=== PATIENT | male | born 1980 | race African-American/Black ===

== ENCOUNTER 2017-10-26 16:19 | Emergency (ER) | payer BC ==
[~2017-10-26] VITALS: Ht 175.3 cm; Wt 88.0 kg
--- NOTE | 2017-10-26 16:39 | NUR ---
PT PRESENTED TO THE ER WITH A C/O RT SIDED NECK AND LOWER BACK PAIN THAT RADIATES DOWN THE RLE.
--- NOTE | 2017-10-26 16:43 | NUR ---
PT REC'D ICE PACKS.
[2017-10-26 17:26] VITALS: BP 123/72
== END 2017-10-26 17:26 | disposition home or self-care (01) ==
LOC: ER 16:21
DX: S39.012A Strain of muscle, fascia and tendon of lower back, initial encounter (principal); Z60.2 Problems related to living alone; V43.52XA Car driver injured in collision with other type car in traffic accident, initial encounter; Y93.89 Activity, other specified; Y92.413 State road as the place of occurrence of the external cause; Y99.8 Other external cause status
CPT/HCPCS: 99283; A4606; Z7610

== ENCOUNTER 2018-02-18 21:44 | Emergency (ER) | payer BC ==
[~2018-02-18] VITALS: Ht 175.3 cm; Wt 93.0 kg
[2018-02-18 22:35] VITALS: BP 131/88
[2018-02-18] MEDS ORDERED: HYDROCODONE/APAP 5/325MG 1 EACH TABLET ONE (23:26)
[2018-02-18] MEDS ORDERED: HYDROCODONE/APAP 5/325MG 1 EACH TABLET PO ONE (23:30)
== END 2018-02-19 00:23 | disposition home or self-care (01) ==
LOC: ER 21:46
DX: S93.492A Sprain of other ligament of left ankle, initial encounter (principal); Z60.2 Problems related to living alone; W21.05XA Struck by basketball, initial encounter; Y93.67 Activity, basketball; Y92.89 Other specified places as the place of occurrence of the external cause; Y99.8 Other external cause status
CPT/HCPCS: 73610; 99284; Z7610

== ENCOUNTER 2018-03-16 13:49 | Emergency (ER) | payer BC ==
[~2018-03-16] VITALS: Ht 175.3 cm; Wt 91.6 kg
--- NOTE | 2018-03-16 13:50 | NUR ---
RECEIVED PATIENT AXO4 , WITH CC OF WORSENING SOB AND TIGHTNESS ON R CHEST X 4 DAYS , 2/10 ACHING IN CHARCTERISTIC UPON INHILATION , SPO2 OF 100% VIA RA , VSS , ATTACHED TO MONITOR , RAJINDER YBARRA AT BEDSIDE ,
--- NOTE | 2018-03-16 16:08 | NUR ---
Patient discharged to home in stable condition. Written and verbal after care instructions given. Patient verbalizes understanding of instruction.
[2018-03-16 16:10] VITALS: BP 124/58
== END 2018-03-16 16:11 | disposition home or self-care (01) ==
LOC: ER 13:51
DX: R06.02 Shortness of breath (principal); Z60.2 Problems related to living alone
CPT/HCPCS: 71045; 99283; A4606; Z7610

== ENCOUNTER 2019-08-16 20:18 | Emergency (ER) | payer SELFPAY ==
[~2019-08-16] VITALS: Ht 175.3 cm; Wt 87.1 kg
[2019-08-16 20:28] VITALS: BP 137/70
[2019-08-16] MEDS ORDERED: ALBUTEROL FS 2.5 MG/3 ML VIAL.NEB NEB ONE (20:30)
[2019-08-16] MEDS ORDERED: predniSONE 20 MG TABLET PO ONE (20:30)
[2019-08-16] MEDS ORDERED: IPRATROPIUM NEB FS 0.5 MG/2.5 ML AMPUL.NEB NEB ONE (20:30)
[2019-08-16] MEDS ORDERED: predniSONE 20 MG TABLET ONE (20:31)
[2019-08-16] MEDS ORDERED: IPRATROPIUM NEB FS 0.5 MG/2.5 ML AMPUL.NEB ONE (20:35)
[2019-08-16] MEDS ORDERED: ALBUTEROL FS 2.5 MG/3 ML VIAL.NEB ONE (20:35)
--- NOTE | 2019-08-16 20:36 | NUR ---
RT AT BEDSIDE
--- NOTE | 2019-08-16 21:19 | NUR ---
Patient discharged to home in stable condition. Written and verbal after care instructions given. Patient verbalizes understanding of instruction.
== END 2019-08-16 21:35 | disposition home or self-care (01) ==
LOC: ER 20:20
DX: R06.02 Shortness of breath (principal); Z60.2 Problems related to living alone
CPT/HCPCS: 71045; 94640; 99283; J7512